=== PATIENT | female | born 1940 | race African-American/Black ===

== ENCOUNTER 2021-03-08 13:37 | Inpatient (IN) | payer BC ==
[~2021-03-08] VITALS: Ht 167.6 cm; Wt 59.9 kg
[2021-03-08] MEDS ORDERED: LABETALOL 5MG/ML SYR 20 MG/4 ML SYRINGE IV ONE (13:45)
[2021-03-08] MEDS ORDERED: LABETALOL 5MG/ML SYR 20 MG/4 ML SYRINGE IV SCH (14:15)
[2021-03-08 14:48] LABS: CHLORIDE 105 mEq/L (98-107)
[2021-03-08 14:52] LABS: BASOPHILS % 0.5 % (0.0-2.0); EOSINOPHILS % 1.1 % (0.0-5.0); HEMATOCRIT. 43.8 % (36.0-48.0); HEMOGLOBIN. 14.2 g/dL (12.0-16.0); LYMPHOCYTES % 22.6 % (20.0-50.0); MEAN CORPUSCULAR HEMOGLOBIN 25.4 pg (28.0-32.0); MEAN CORPUSCULAR VOLUME 78.7 fL (81.0-99.0); MEAN PLATELET VOLUME 9.1 fl (7.4-10.4); MONOCYTES % 7.6 % (2.0-8.0); NEUTROPHILS % 68.2 % (40.0-76.0); PLATELET 221 x1000/uL (130-400); RED BLOOD CELL COUNT 5.57 mill/uL (4.2-5.4); RED CELL DISTRIBUTION WIDTH 16.4 % (11.6-14.6)
[2021-03-08 14:53] LABS: ETHANOL BLOOD < 10 mg/dL
[2021-03-08 15:09] LABS: PARTIAL THROMBOPLASTIN TIME 26.8 sec (23.4-31.0); PROTHROMBIN TIME 10.9 sec (9.6-11.0)
[2021-03-08] MEDS ORDERED: ASPIRIN 325MG EC TABLET PO ONE (15:30)
[2021-03-08] MEDS ORDERED: CLONIDINE 0.2MG TABLET PO ONE (15:30)
[2021-03-08 15:40] LABS: CANNABINOID URINE SCREEN NEGATIVE (NEGATIVE)
[2021-03-08 15:41] LABS: *AMPHETAMINES SCREEN URINE NEGATIVE (NEGATIVE); *BARBITURATES SCREEN URINE NEGATIVE (NEGATIVE); *BENZODIAZEPINES SCREEN URINE NEGATIVE (NEGATIVE); *COCAINE SCREEN URINE NEGATIVE (NEGATIVE); METHADONE URINE SCREEN NEGATIVE (NEGATIVE); OPIATES URINE SCREEN NEGATIVE (NEGATIVE)
[2021-03-08 15:42] LABS: PHENCYCLIDINE URINE SCREEN NEGATIVE (NEGATIVE)
[2021-03-08] MEDS ORDERED: MAGNESIUM/ALUMINUM HYDROXIDE/SIMETHICONE 30ML UDC PO PRN (18:15)
[2021-03-08] MEDS ORDERED: CLONIDINE 0.1MG TABLET PO PRN (18:15)
[2021-03-08] MEDS ORDERED: GUAIFENESIN 200MG/10ML SUGAR FREE UDC PO PRN (18:15)
[2021-03-08] MEDS ORDERED: ONDANSETRON HCL 4MG/2ML INJ IV PRN (18:15)
[2021-03-08] MEDS ORDERED: ACETAMINOPHEN 325MG TABLET PO PRN (18:15)
[2021-03-08] MEDS ORDERED: DOCUSATE SODIUM 100MG CAPSULE PO PRN (18:15)
[2021-03-08] MEDS ORDERED: DEXT 5%/0.45% NACL 1000ML 1,000 ML IV SCH (18:45)
[2021-03-08] MEDS: AMLODIPINE 10MG TABLET PO SCH (19:13)
[2021-03-08] MEDS: ENOXAPARIN 40MG/0.4ML SYR SUBCUT SCH (20:27)
[2021-03-09] VITALS (7 sets, daily range): BP systolic 126–150; BP diastolic 59–78
[2021-03-09 06:28] LABS: CHLORIDE 107 mEq/L (98-107)
[2021-03-09 06:30] LABS: BASOPHILS % 0.4 % (0.0-2.0); EOSINOPHILS % 2.1 % (0.0-5.0); HEMATOCRIT. 36.1 % (36.0-48.0); HEMOGLOBIN. 12.1 g/dL (12.0-16.0); LYMPHOCYTES % 32.5 % (20.0-50.0); MEAN CORPUSCULAR HEMOGLOBIN 26.1 pg (28.0-32.0); MEAN PLATELET VOLUME 9.2 fl (7.4-10.4); MONOCYTES % 9.4 % (2.0-8.0); NEUTROPHILS % 55.6 % (40.0-76.0); PLATELET 171 x1000/uL (130-400); RED BLOOD CELL COUNT 4.63 mill/uL (4.2-5.4); RED CELL DISTRIBUTION WIDTH 16.2 % (11.6-14.6)
[2021-03-09 06:42] LABS: LDL CHOLESTEROL 88 mg/dL (5-100)
[2021-03-09 06:44] LABS: HDL CHOLESTEROL 58 mg/dL (40-59)
[2021-03-09] MEDS: AMLODIPINE 10MG TABLET PO SCH (16:56)
[2021-03-09] MEDS: ASPIRIN 81MG EC TABLET PO SCH (16:56)
[2021-03-09] MEDS: ENOXAPARIN 40MG/0.4ML SYR SUBCUT SCH (20:29)
[2021-03-10] VITALS: BP 149/77
[2021-03-10 04:00] VITALS: BP 145/64
[2021-03-10 08:00] VITALS: BP 137/65
[2021-03-10] MEDS: AMLODIPINE 10MG TABLET PO SCH (08:16)
[2021-03-10] MEDS: ASPIRIN 81MG EC TABLET PO SCH (08:16)
[2021-03-10 12:00] VITALS: BP 124/59
[2021-03-10 16:00] VITALS: BP 130/64
[2021-03-10 20:00] VITALS: BP 116/69
[2021-03-10] MEDS: ENOXAPARIN 40MG/0.4ML SYR SUBCUT SCH (20:07)
[2021-03-10] MEDS ORDERED: ATORVASTATIN CALCIUM 20MG TABLET PO SCH (21:00)
[2021-03-11] VITALS: BP 113/71
[2021-03-11 04:00] VITALS: BP 112/61
[2021-03-11 08:00] VITALS: BP 150/67
[2021-03-11] MEDS: ASPIRIN 81MG EC TABLET PO SCH (09:24)
[2021-03-11] MEDS: AMLODIPINE 10MG TABLET PO SCH (09:24)
[2021-03-11 11:31] VITALS: BP 133/63
== END 2021-03-11 13:10 | disposition home health service (06) | DRG 64 ==
LOC: ER 13:37 → MICUSO 22:32 → 8WST 03-09 10:41
PROVIDERS: ADMIT Hospitalist; ATTEND Hospitalist
DX: I63.81 Other cerebral infarction due to occlusion or stenosis of small artery (principal); E43 Unspecified severe protein-calorie malnutrition; R29.810 Facial weakness; I16.0 Hypertensive urgency; R47.81 Slurred speech; I10 Essential (primary) hypertension; Z20.822 Contact with and (suspected) exposure to COVID-19; Z68.21 Body mass index [BMI] 21.0-21.9, adult
CPT/HCPCS: 36415; 70496; 70498; 70551; 71045; 80053; 80061; 80305; 80320; 82962; 84484; 85025; 87426; 92610; 93005; 93970; 97162; 97165; 99291; J1650; J3490; G0480